=== PATIENT | male | born 1985 | race Caucasian/White ===

== ENCOUNTER 2017-09-03 10:23 | Day surgery (SDC) | payer OTHER ==
[2017-09-02 14:55] VITALS: BMI 61.8
[2017-09-03] MEDS ORDERED: MIDAZOLAM HCL 2 MG/2 ML SINGLE DOSE VIAL ONE ×2 (12:50)
[2017-09-03 13:15] VITALS: TEMP 97.5
[2017-09-03 13:39] VITALS: BP 124/79
[2017-09-03 14:49] VITALS: PULSE 72
--- NOTE | 2017-09-05 15:43 | PATH ---
Surgical Pathology Report Patient Name: TEREZA RODRIGUES [facility]. Rec. #: [id number] /Age/Gender: 1985 (Age: 31) / M Account: [id number] Location: [facility]-ENDOSCOPY Taken: 09/03/2017 Received: 09/03/2017 Reported: 09/05/2017 Physicians: Michael Garcia M.D. Specimen(s) Received BX ANTRUM Clinical History Preoperative for bariatric surgery Final Diagnosis ANTRUM, BIOPSY: GASTRIC MUCOSA WITH NO PATHOLOGIC FINDINGS. IMMUNOSTAIN IS NEGATIVE FOR H.PYLORI ORGANISMS. Electronically Signed Bertha Roth M.D. Gross Description Received in formalin, labeled "antrum biopsy" are 2 [place], irregular portions of soft tissue measuring 0.3 and 0.5 cm. in greatest dimension. The specimens are submitted in toto in one cassette. /09/03/2017 saudi09/03/2017
== END 2017-09-03 15:06 | disposition home or self-care (01) ==
LOC: JASU-ENDO 10:23
PROVIDERS: ATTEND Internal Medicine Gastroenterology
PROC: 0DB68ZX Excision of Stomach, Via Natural or Artificial Opening Endoscopic, Diagnostic (ICD-10-PCS; principal; 2017-09-03 12:30)
DX: Z01.818 Encounter for other preprocedural examination (principal)
CPT/HCPCS: 88305-TC; 88342-TC